=== PATIENT | male | born 1980 | race Caucasian/White ===

== ENCOUNTER 2020-09-17 13:15 | Emergency (ER) | payer OTHER ==
[~2020-09-17] VITALS: Ht 175.3 cm; Wt 97.5 kg
[2020-09-17] MEDS ORDERED: LIDO700A20 TOP (14:53)
[2020-09-17] MEDS ORDERED: Zovirax800 MG PO (14:53)
[2020-09-17] MEDS ORDERED: HYDR1TAB94 PO (14:53)
== END 2020-09-17 15:02 | disposition home or self-care (01) ==
LOC: ER 13:15
DX: B02.9 Zoster without complications (principal); Z88.0 Allergy status to penicillin
CPT/HCPCS: 99282